=== PATIENT | male | born 2000 | race Caucasian/White ===

== ENCOUNTER 2025-05-19 21:31 | Emergency (ER) | payer OTHER ==
[~2025-05-19] VITALS: Ht 180.3 cm; Wt 65.0 kg
[2025-05-19 21:41] VITALS: TEMP 97.3
--- NOTE | 2025-05-19 22:09 | Physician Documentation ---
History of Present Illness ~ Chief Complaint: Bite-insect Stated Complaint: SPIDER BITE Time Seen by MD: 21:55 OK to notify your PCP?: Yes Source: patient Mode of Arrival: POV Exam Limitations: no limitations HPI Mr. Stratton is a 25 y/o male who presents to the ED with c/o pain s/p Black spider bite. He states that the spider bit him on the back of his neck last night and the pain has progressively worsened throughout the day today. He states that he felt when the spider bit him and was able to pull the spider off his neck and kill it. He has never been bitten by a Black before. No fever/chills. He has been taking Acetaminophen throughout the day today without relief. No numbness/tingling/weakness. No SOB or difficulty breathing. No chest pain/pressure/palpitations. Generalized body aches/pains. Medication Reconciliation Allergies: Coded Allergies: No Known Allergies (Unverified , 05/19/25) Review of Systems All Other Systems at this time: Reviewed and Negative Constitutional: Reports: no symptoms reported Constitutional Generalized body pain. ENT: Reports: no symptoms reported Respiratory: Reports: no symptoms reported Cardiovascular: Reports: no symptoms reported Gastrointestinal: Reports: no symptoms reported Neurological: Reports: no symptoms reported Musculoskeletal Generalized muscle pain Endocrine: Reports: no symptoms reported Psychiatric: Reports: no symptoms reported Physical Exam Vital Signs: RN Vital Signs have been reviewed: Yes, Temperature: 97.3, Source: Temporal, Heart Rate: 57, Respiratory Rate: 15, BP: 138/100, Pulse Oximetry: 99, Weight: 65.000 General Appearance: alert, WD/WN, no apparent distress Eyes, Ears, Nose: PERRL/EOMI Oropharynx/Lips: normal inspection Airway: patent Neck: normal inspection Cardiovascular: normal peripheral pulses Respiratory: lungs clear Chest: no accessory muscle use Gastrointestinal: normal palpation Back: normal inspection Extremities: normal range of motion Neurologic: oriented x4 Psychiatric: normal mood/affect Skin: normal color Lymphatic: normal inspection Progress Results/Orders Results/Orders Completed Orders - YENY SUERO MD Ketorolac Trometh 15mg/Ml Vial (Toradol (05/19/25 22:05) Oxycodone Sr Tablet (Oxycontin Tablet) (05/19/25 22:05) CK (05/19/25 22:03) Cbc/Diff (05/19/25 22:03) BMP (05/19/25 22:03) Hydromorphone 1 Mg/Ml/Pf (Dilaudid Inj.) (05/19/25 23:35) Normal Saline 1000ml (0.9% Sodium Chlori (05/19/25 23:35) Medications Received in ER Medications (Trade) Dose Ordered Sig/Carla Route PRN Reason Start Time Stop Time Status Last Admin Dose Admin (Toradol injection) 15 mg ONCE ONCE IM 05/19/25 22:05 05/19/25 22:06 DC 05/19/25 22:23 15 MG (oxyCONTIN tablet) 10 mg ONCE ONCE PO 05/19/25 22:05 05/19/25 22:06 DC 05/19/25 22:22 10 MG (Dilaudid inj.) 1 mg ONCE ONCE IV 05/19/25 23:35 05/19/25 23:38 DC 05/19/25 23:59 1 MG Sodium Chloride 1,000 ml @ 1,000 mls/hr ONCE ONCE IV 05/19/25 23:35 05/20/25 00:34 DC 05/19/25 23:54 1,000 MLS/HR Vital Signs 05/19/25 05/19/25 05/19/25 05/19/25 21:41 22:06 22:23 23:59 Temp 97.3 Pulse 57 Resp 15 6 16 B/P (MAP) 138/100 Pulse Ox 99 05/20/25 05/20/25 00:01 02:47 Pulse 107 89 Resp 16 14 B/P (MAP) 124/74 (91) 128/93 (105) Pulse Ox 98 98 O2 Flow Rate 0 0 Laboratory Tests Test 05/19/25 22:30 White Blood Count 23.1 H Red Blood Count 4.56 L Hemoglobin 15.7 Hematocrit 43.9 Mean Corpuscular Volume 96.4 Mean Corpuscular Hemoglobin 34.6 H Mean Corpuscular Hemoglobin Concent 35.8 Red Cell Distribution Width 18.3 H Platelet Count 262 Mean Platelet Volume 9.2 Neutrophils (%) (Auto) 91.3 H Lymphocytes (%) (Auto) 4.0 L Monocytes (%) (Auto) 3.8 Eosinophils (%) (Auto) 0.5 Basophils (%) (Auto) 0.4 Neutrophils # (Auto) 21.1 H Lymphocytes # (Auto) 0.9 L Monocytes # (Auto) 0.9 Eosinophils # (Auto) 0.1 Basophils # (Auto) 0.1 CBC Comment Platelet Estimate Normal Red Blood Cell Morphology Perf Basophilic Stippling Anisocytosis 2+ Microcytosis 1+ Macrocytosis 1+ Sodium Level 142 Potassium Level 4.3 Chloride Level 105 Carbon Dioxide Level 25.4 Anion Gap 12 Blood Urea Nitrogen 8 Creatinine 0.92 Estimated GFR/1.73 m2 > 90 BUN/Creatinine Ratio 8.7 L Glucose Level 110 H Calcium Level 9.1 Total Creatine Kinase 46 Albumin 4.8 Chemistry Comments Medical Decision Making Findings While here in the ED, he remained hemodynamically normal with ABC's intact and in NAD. He is afebrile and nontoxic. I do not actually appreciate a wound to the back of his neck. No bite tolbert or cellulitis or swelling noted. He is noted to have a leukocytosis of 23k but is without left shift. Neutrophil predominance. Lytes within normal limits. CK normal. Treated with IM Ketorolac and PO Oxy. Reassessed and still had significant pain so added Dilaudid. Reassessed and he feels significantly better. I have low clinical concern for occult bacteremia. He has no lymphadenopahty. He is safe for d/c home. Will prescribed a course of Keflex. Given follow-up and return instructions. He voiced understanding and agreement with d/c instructions. Differential Dx:Considerations: Include: Allergic reaction, Anaphylaxis, Cellulitis, Insect envenomation, Punture wound, Urticaria Departure Disposition: HOME / SELF CARE / HOMELESS Impression: Primary Impression: Insect bites Condition: Improved Discharge Instructions: Insect Bite, Adult, [id number] Referrals: NO PRIMARY CARE PROVIDER (PCP) Education Educated: Patient Educated regarding: diagnosis, treatment, prognosis Signature Scribe Signature: N/A Attestation: N/A YENY SUERO MD May 19, 2025 22:09
[2025-05-19] MEDS: oxyCODONE SR 10mg (sust. release) tab PO ONE (22:22)
[2025-05-19] MEDS: ketorolac trometh 15mg/ml vial 15 MG/ML ML IM ONE (22:23)
[2025-05-19 22:59] LABS: CREATININE 0.92 MG/DL (0.60-1.10); TOTAL CARBON DIOXIDE 25.4 MMOL/L (24-32); eCRCL 114 ML/MIN; eGFR > 90 ML/MIN
[2025-05-19] MEDS: normal saline 1000ml 1,000 ML IV ONE (23:54)
[2025-05-20] LABS: MEAN PLATELET VOLUME 9.2 FL (7.4-10.4); RED CELL DISTRIBUTION WIDTH 18.3 % (11.5-14.5)
[2025-05-20 00:13] LABS: PLATELET ESTIMATE NORMAL
[2025-05-20] MEDS ORDERED: HYDROmorphone/PF 0.2 MG/ML SYRINGE IV ONE (03:00)
[2025-05-20] MEDS ORDERED: CEPH-585 PO (03:01)
[2025-05-20] MEDS ORDERED: HYDR-3965 PO (03:01)
[2025-05-20] MEDS: HYDROmorphone inj. 0.5 MG/0.5 ML DISP.SYRIN IV ONE (03:18)
[2025-05-20 03:36] VITALS: BP 117/74; PULSE 90; RESP 14; O2SAT 95
== END 2025-05-20 03:37 | disposition home or self-care (01) ==
LOC: ER 21:32
DX: S10.86XA Insect bite of other specified part of neck, initial encounter (principal); W57.XXXA Bitten or stung by nonvenomous insect and other nonvenomous arthropods, initial encounter; Y93.89 Activity, other specified; Y92.89 Other specified places as the place of occurrence of the external cause; Y99.8 Other external cause status
CPT/HCPCS: 36415; 80048; 82550; 85008; 85025; 96361; 96372; 96374; 96376; 99284; J1171; J1885; J7030

== ENCOUNTER 2025-08-19 17:04 | Emergency (ER) | payer SELFPAY ==
[~2025-08-19] VITALS: Ht 170.2 cm; Wt 56.3 kg
--- NOTE | 2025-08-19 17:29 | RADIOLOGY REPORT ---
EXAM: DI CHEST,TWO VIEWS CLINICAL HISTORY: COUGH TECHNIQUE: Frontal and lateral views of the chest WID: COMPARISON: None FINDINGS: Lines and tubes: None Chest: The heart size and pulmonary vasculature is within normal limits. No pleural effusion, pneumothorax, or consolidation. The osseous structures are grossly intact. IMPRESSION: 1. No acute cardiopulmonary abnormality.
--- NOTE | 2025-08-19 18:13 | Physician Documentation ---
History of Present Illness ~ Chief Complaint: Flu Symptoms Stated Complaint: BODY ACHES/VOMITING Time Seen by MD: 17:41 HPI This is a 25-year-old male who presents with two days of cough, nasal congestion, generalized body aches, and vomiting with subjective fever. Patient is accompanied by significant other who reports patient's eyes appear slightly yellow. Reports that he has been having trouble keeping any food or drink down past two days. Patient reports body pain is poorly controlled with Tylenol though it does lower his fever. Patient reports he is unable to take ibuprofen as he has history of a bleeding ulcer. Medication Reconciliation Allergies: Coded Allergies: No Known Allergies (Unverified , 05/19/25) Review of Systems ROS As stated above in the HPI, otherwise all systems are reviewed and negative. Physical Exam Vital Signs: Temperature: 99.2, Source: Temporal, Heart Rate: 99, Respiratory Rate: 18, BP: 129/84, Pulse Oximetry: 99, Weight: 56.300 Oxygen Flow Rate: 0 Physical Exam VITALS: Reviewed and as above. GENERAL: Alert, nontoxic appearing, no apparent distress. HEENT: Mild Sclera icterus, RESPIRATORY: No increased work of breathing, no respiratory distress, speaking in full clear sentences, clear lung sounds in all chávez CV: Regular rate and rhythm no murmur BACK: No CVA tenderness, lumbar back general tenderness to palpation, no central spinal tenderness, no step-offs, no crepitus GI: Left upper quadrant tender to palpation otherwise soft, nontender, no rebound, no guarding. SKIN: Warm and dry, no ecchymosis, no rash Progress Results/Orders Results/Orders Orders - MAULIK HEDRICK MD Ondansetron Disint. Tablet (Zofran Odt T (08/19/25 21:50) Acetaminophen 325mg Tablet (Tylenol Tabl (08/19/25 21:50) Levofloxacin 750mg Tablet (Levaquin 750m (08/19/25 21:50) Completed Orders - MAULIK HEDRICK MD Procalcitonin (08/19/25 19:54) Vital Signs 08/19/25 17:08 Temp 99.2 Pulse 99 Resp 18 B/P (MAP) 129/84 Pulse Ox 99 O2 Flow Rate 0 Laboratory Tests Test 08/19/25 19:02 White Blood Count 6.3 Red Blood Count 3.26 L Hemoglobin 11.7 L Hematocrit 32.7 L Mean Corpuscular Volume 100.2 H Mean Corpuscular Hemoglobin 36.0 H Mean Corpuscular Hemoglobin Concent 36.0 Red Cell Distribution Width 16.4 H Platelet Count 178 Mean Platelet Volume 9.4 Neutrophils (%) (Auto) 79.1 H Lymphocytes (%) (Auto) 9.1 L Monocytes (%) (Auto) 10.3 Eosinophils (%) (Auto) 0.9 Basophils (%) (Auto) 0.6 Neutrophils # (Auto) 5.3 Lymphocytes # (Auto) 0.6 L Monocytes # (Auto) 0.7 Eosinophils # (Auto) 0.1 Basophils # (Auto) 0.0 CBC Comment Sodium Level 137 Potassium Level 3.8 Chloride Level 101 Carbon Dioxide Level 29.9 Anion Gap 6 L Blood Urea Nitrogen 18 Creatinine 0.89 Estimated GFR/1.73 m2 > 90 BUN/Creatinine Ratio 20.2 H Glucose Level 97 Calcium Level 9.2 Total Bilirubin 5.8 H Aspartate Amino Transf (AST/SGOT) 29 Alanine Aminotransferase (ALT/SGPT) 20 Alkaline Phosphatase 75 Total Protein 8.0 Albumin 4.4 Globulin 3.6 Albumin/Globulin Ratio 1.2 Lipase 13 L Procalcitonin 0.64 H Chemistry Comments EKG/XRAY/CT/US/VASC/MRI Ultrasound : Impression Exam: ULTRASOUND OF ABDOMEN INDICATION: Left upper quadrant pain TECHNIQUE: Multiple real-time sonographic images of the abdomen were obtained. COMPARISON: None FINDINGS: Liver is homogenous in echogenicity. The liver measures 17.3 cm. No intrahepatic biliary ductal dilatation is noted. The gallbladder wall measures 0.2 cm and is unremarkable. Sludge with no stone. No pericholecystic fluid or edema. The common duct measures 0.4 cm and is unremarkable. The right kidney measures 10.1 cm. No hydronephrosis. The left kidney measures 9.9 cm. No hydronephrosis. The spleen is enlarged measuring 15.5 cm, The echogenicity is within normal limits. The pancreas is not well visualized due to obscuration from bowel gas. The visualized portions of the IVC and aorta are grossly unremarkable. IMPRESSION: Hepatomegaly and splenomegaly. Electronically Signed by:TOD ZARAGOZA MD Date & Time: 08/19/251911 Dictated by: TOD ZARAGOZA MD Dictation date and time: 08/19/251911 Exam: ULTRASOUND OF ABDOMEN INDICATION: Left upper quadrant pain TECHNIQUE: Multiple real-time sonographic images of the abdomen were obtained. COMPARISON: None FINDINGS: Liver is homogenous in echogenicity. The liver measures 17.3 cm. No intrahepatic biliary ductal dilatation is noted. The gallbladder wall measures 0.2 cm and is unremarkable. Sludge with no stone. No pericholecystic fluid or edema. The common duct measures 0.4 cm and is unremarkable. The right kidney measures 10.1 cm. No hydronephrosis. The left kidney measures 9.9 cm. No hydronephrosis. The spleen is enlarged measuring 15.5 cm, The echogenicity is within normal limits. The pancreas is not well visualized due to obscuration from bowel gas. The visualized portions of the IVC and aorta are grossly unremarkable. IMPRESSION: Hepatomegaly and splenomegaly. Electronically Signed by:TOD ZARAGOZA MD Date & Time: 08/19/251911 Dictated by: TOD ZARAGOZA MD Dictation date and time: 08/19/251911 Medical Decision Making Additional information obtaine: other Findings Patient presents to the emergency room with fever cough cold congestion symptoms. Differentials include but are not limited to viral infection, pneumonia, CHF, sepsis therefore emergent labs and imaging indicated. Chest x- ray is reassuring. CBC is reassuring for no significant anemia or elevation of white blood cells. Patient does have a slightly elevated procalcitonin given risks versus benefits we will begin antibiotics. Ultrasound findings consistent with sequestration from his illness. ER precautions discussed. Patient does have markedly elevated bilirubin consistent with sequestration from his sphe rocytosis. Differential Dx:Considerations: Include: Allergic rhinitis, Influenza, Otitis media, Peritonsillar abscess, Pharyngitis-Diphtheria, Pharyngitis-Streptoccal, Pharyngitis-Viral, Pneumonia, Pnuemonitis, Sinusitis, URI, Other Departure Disposition: 01 HOME / SELF CARE / HOMELESS Impression: Primary Impression: Respiratory infection Additional Impression: Hereditary spherocytosis Condition: Fair Discharge Instructions: Upper Respiratory Infection, Adult Additional Instructions: You may continue to take Tylenol for your fever/body aches and pains Referrals: NO PRIMARY CARE PROVIDER (PCP) Prescriptions Ondansetron 8mg ODT (Ondansetron Odt) 8 Mg Tab.rapdis 1 TAB PO Q6H for nausea/vomiting for 3 Days, #12 TAB 0 Refills Prov: MAULIK HEDRICK MD 08/19/25 Levofloxacin (Levofloxacin) 500 Mg Tablet 1 TAB PO DAILY for 7 Days, #7 TAB Prov: MAULIK HEDRICK MD 08/19/25 Signature Scribe Signature: No scribe Attestation: The note accurately reflects work and decisions made by me.Maulik Hedrick MD 08/19/25 21:50 ABIGAIL QUIGLEY Aug 19, 2025 18:13 MAULIK HEDRICK MD Aug 19, 2025 21:50
--- NOTE | 2025-08-19 19:15 | RADIOLOGY REPORT ---
INDICATION: Left upper quadrant pain TECHNIQUE: Multiple real-time sonographic images of the abdomen were obtained. COMPARISON: None FINDINGS: Liver is homogenous in echogenicity. The liver measures 17.3 cm. No intrahepatic biliary ductal dilatation is noted. The gallbladder wall measures 0.2 cm and is unremarkable. Sludge with no stone. No pericholecystic fluid or edema. The common duct measures 0.4 cm and is unremarkable. The right kidney measures 10.1 cm. No hydronephrosis. The left kidney measures 9.9 cm. No hydronephrosis. The spleen is enlarged measuring 15.5 cm, The echogenicity is within normal limits. The pancreas is not well visualized due to obscuration from bowel gas. The visualized portions of the IVC and aorta are grossly unremarkable. IMPRESSION: Hepatomegaly and splenomegaly.
[2025-08-19 20:05] LABS: CREATININE 0.89 MG/DL (0.60-1.10); TOTAL CARBON DIOXIDE 29.9 MMOL/L (24-32); eCRCL 102 ML/MIN; eGFR > 90 ML/MIN
[2025-08-19 20:53] LABS: MEAN PLATELET VOLUME 9.4 FL (7.4-10.4); RED CELL DISTRIBUTION WIDTH 16.4 % (11.5-14.5)
[2025-08-19] MEDS ORDERED: LEVO-65 PO (21:49)
[2025-08-19] MEDS ORDERED: ONDA-245 PO (21:50)
[2025-08-19] MEDS: levoFLOXACIN 750MG TABLET PO ONE (22:32)
[2025-08-19] MEDS: ondansetron 4mg rapidly disintigrating tab PO ONE (22:33)
[2025-08-19 22:40] VITALS: BP 130/82; PULSE 99; RESP 18; TEMP 98.6; O2SAT 99
== END 2025-08-19 22:41 | disposition home or self-care (01) ==
LOC: ER 17:04
DX: J98.8 Other specified respiratory disorders (principal); D58.0 Hereditary spherocytosis
CPT/HCPCS: 36415; 71046; 76700; 80053; 83690; 84145; 85025; 99284